=== PATIENT | male | born 1990 | race African-American/Black ===

== ENCOUNTER 2017-06-04 15:56 | Emergency (ER) | payer OTHER ==
[2017-06-04 16:18] VITALS: BP 133/88; PULSE 85; RESP 18
[2017-06-04] MEDS ORDERED: ACETAMINOPHEN TAB 325 MG TAB PO STA (16:19)
--- NOTE | 2017-06-04 16:49 | ED ---
Fever HPI - General Chief Complaint: Fever Stated Complaint: Sore Throat Time Seen by Provider: 06/04/17 16:36 Source: patient, RN notes reviewed Mode of arrival: ambulatory Limitations: no limitations - History of Present Illness Initial Comments: This is a 27-year-old male who presents to the emergency department with chief complaint of sore throat. Patient states that he has had a sore throat and body aches for the past 2 days. He does have a fever on presentation. Denies abdominal pain, nausea or vomiting, shortness of breath or chest pain, constipation or diarrhea. He states that he has received the influenza vaccination this year. Denies any cough. Denies dysuria or hematuria. - Related Data Previous Rx's Medication Instructions Recorded Azithromycin [Zithromax Z-pack] 0 mg PO DIRECTED #6 tab 06/04/17 Ibuprofen 600 mg PO Q6HR #20 tablet 06/04/17 Allergies Allergy/AdvReac Type Severity Reaction Status Date / Time No Known Allergies Allergy Verified 06/04/17 16:50 Review of Systems ROS Statement: Those systems with pertinent positive or pertinent negative responses have been documented in the HPI. ROS Other: All systems not noted in ROS Statement are negative. Past Medical History Past Medical History: Asthma History of Any Multi-Drug Resistant Organisms: None Reported Past Surgical History: No Surgical Hx Reported Past Psychological History: No Psychological Hx Reported Smoking Status: Never smoker Past Alcohol Use History: None Reported Past Drug Use History: None Reported General Exam - General Exam Comments Initial Comments: General: Awake and alert, well-developed; in no apparent distress. HEENT: Head atraumatic, normocephalic. Pupils are equal, round and reactive to light. Extraocular movements intact. Oropharynx moist with mild erythema. No tonsillar enlargement or exudates. Neck: Supple. Normal ROM. Cardiovascular: Regular rate and rhythm. No murmurs, rubs or gallops. Chest symmetrical. Respiratory: Lungs clear to auscultation bilaterally. No wheezes, rales or rhonchi. Normal respiratory effort with no use of accessory muscles. Musculoskeletal: Normal ROM, no tenderness bilateral upper and lower extremities. Ambulating normally. Neurological: Alert and oriented x3. CN II-XII grossly intact. Speech is fluent and answers are appropriate. No focal neuro deficits. Psychiatric: Normal mood and affect. No overt signs of depression or anxiety noted. Limitations: no limitations Course Vital Signs 06/04/17 16:16 Temperature 102.0 F H Pulse Rate 85 Respiratory 18 Rate Blood Pressure 133/88 O2 Sat by Pulse 100 Oximetry Medical Decision Making - Medical Decision Making This is a 27-year-old male who presents to the emergency department with chief complaint of sore throat. Patient given Tylenol in the emergency department for his fever. Influenza and rapid strep were both negative. Patient will be treated with azithromycin because he does have a high fever. Patient requests pain medication for his sore throat. He will be prescribed ibuprofen 600. Patient is in no acute distress on discharged home. Vital signs are stable. He is in agreement with plan and voices understanding. All questions were answered. - Lab Data Lab Results 06/04/17 06/04/17 Range/Units 16:20 16:40 Influenza Type A RNA Not Detected (Not Detectd) Influenza Type B (PCR) Not Detected (Not Detectd) Group A Strep Rapid Negative (Negative) Disposition Clinical Impression: Pharyngitis Disposition: HOME SELF-CARE Condition: Good Instructions: Fever in Adults (ED), Pharyngitis (ED) Additional Instructions: Please take medications as prescribed. Please follow up with primary care provider within 1-2 days. Return to emergency department if symptoms should worsen or any concerns arise. Prescriptions: Azithromycin [Zithromax Z-pack] 0 mg PO DIRECTED #6 tab Ibuprofen 600 mg PO Q6HR #20 tablet Referrals: None,Stated [Primary Care Provider] - 1-2 days Time of Disposition: 17:45
[2017-06-04 17:55] VITALS: TEMP 100.8
== END 2017-06-04 17:54 | disposition home or self-care (01) ==
LOC: EC 15:56
DX: J02.9 Acute pharyngitis, unspecified (principal)
CPT/HCPCS: 87081; 87430; 87502; 99283

== ENCOUNTER 2017-06-07 08:23 | Emergency (ER) | payer OTHER ==
--- NOTE | 2017-06-07 09:10 | ED ---
General Adult HPI - General Chief complaint: ENT Stated complaint: sore throat Time Seen by Provider: 06/07/17 09:04 Source: patient, RN notes reviewed Mode of arrival: ambulatory Limitations: no limitations - History of Present Illness Initial comments: 27-year-old male presents to the emergency department with a chief complaint of a sore throat. Patient states she's had this since Sunday. He was seen a few days ago and started on azithromycin. Patient states that he continues to have the sore throat so he was concerned. Patient does continue to have fevers. He does admit to a cough as well. He states that he just is not feeling much better. He denies any ear pain with this. He denies any bodyaches.Patient denies any recent shortness of breath, chest pain, back pain, abdominal pain, nausea vomiting, numbness or tingling, dysuria or hematuria, constipation or diarrhea, headaches or visual changes, or any other current symptoms. - Related Data Previous Rx's Medication Instructions Recorded Benzonatate [Tessalon Perles] 100 mg PO TID #20 cap 06/07/17 Allergies Allergy/AdvReac Type Severity Reaction Status Date / Time No Known Allergies Allergy Verified 06/07/17 08:47 Review of Systems ROS Statement: Those systems with pertinent positive or pertinent negative responses have been documented in the HPI. ROS Other: All systems not noted in ROS Statement are negative. Past Medical History Past Medical History: Asthma History of Any Multi-Drug Resistant Organisms: None Reported Past Surgical History: No Surgical Hx Reported Past Psychological History: No Psychological Hx Reported Smoking Status: Never smoker Past Alcohol Use History: None Reported Past Drug Use History: None Reported General Exam - General Exam Comments Initial Comments: General exam: Alert, active, comfortable in no apparent distress Head: Normocephalic Eyes: Normal reaction of pupils, equal size, normal range of extraocular motion Ears: normal external ear canals, pink tympanic membranes with normal cone of light Nose: clear with pink turbinates Throat: Erythema with exudate noted. Neck: no masses, no nuchal rigidity Chest: no chest wall deformity Lungs: equal air entry with no crackles or wheeze CVS: S1 and S2 normal with no audible mumurs, regular rhythm Abdomen: no hepatosplenomegaly, normal bowel sounds, no guarding or rigidity Spine: no scoliosis or deformity Skin: no rashes Neurological: No focal deficits, tone is normal in all 4 extremities Limitations: no limitations Course Vital Signs 06/07/17 08:35 Temperature 99.5 F Pulse Rate 91 Respiratory 18 Rate Blood Pressure 135/82 O2 Sat by Pulse 100 Oximetry Medical Decision Making - Medical Decision Making 27-year-old male presents for sore throat. At this time previous strep culture was reviewed and negative. Chest x-ray is negative as well and lab work does appear to be stable. This time we discussed most likely a viral pharyngitis. We discussed continuing the Motrin and Tylenol. We discussed continuing the current treatment plan. We discussed follow-up we discussed return parameters all questions. The patient stated that he understood and he is agreement this plan. He will be discharged. - Lab Data Result diagrams: 06/07/17 09:25 06/07/17 09:25 Lab Results 06/07/17 06/07/17 06/07/17 Range/Units 09:25 09:25 09:25 WBC 8.3 (3.8-10.6) k/uL RBC 4.31 (4.30-5.90) m/uL Hgb 13.8 (13.0-17.5) gm/dL Hct 40.9 (39.0-53.0) % MCV 95.0 (80.0-100.0) fL MCH 32.0 (25.0-35.0) pg MCHC 33.7 (31.0-37.0) g/dL RDW 11.4 L (11.5-15.5) % Plt Count 183 (150-450) k/uL Neutrophils % 75 % Lymphocytes % 11 % Monocytes % 8 % Eosinophils % 3 % Basophils % 0 % Neutrophils # 6.2 (1.3-7.7) k/uL Lymphocytes # 0.9 L (1.0-4.8) k/uL Monocytes # 0.7 (0-1.0) k/uL Eosinophils # 0.2 (0-0.7) k/uL Basophils # 0.0 (0-0.2) k/uL Sodium 144 (137-145) mmol/L Potassium 4.0 (3.5-5.1) mmol/L Chloride 103 (98-107) mmol/L Carbon Dioxide 28 (22-30) mmol/L Anion Gap 13 mmol/L BUN 9 (9-20) mg/dL Creatinine 0.80 (0.66-1.25) mg/dL Est GFR (MDRD) Af Amer >60 (>60 ml/min/1.73 sqM) Est GFR (MDRD) Non-Af >60 (>60 ml/min/1.73 sqM) Glucose 113 H (74-99) mg/dL Calcium 9.1 (8.4-10.2) mg/dL Total Bilirubin 0.8 (0.2-1.3) mg/dL AST 20 (17-59) U/L ALT 19 L (21-72) U/L Alkaline Phosphatase 71 (38-126) U/L Total Protein 7.5 (6.3-8.2) g/dL Albumin 4.1 (3.5-5.0) g/dL Heterophile Antibody Negative (Negative) - Radiology Data Radiology results: report reviewed, image reviewed Disposition Clinical Impression: Pharyngitis Disposition: HOME SELF-CARE Condition: Stable Instructions: Pharyngitis (ED) Additional Instructions: Please use medication as discussed. Please follow up with family doctor if symptoms have not improved over the next two days. Please return to the emergency room if your symptoms increase or worsen or for any other concerns. Prescriptions: Benzonatate [Tessalon Perles] 100 mg PO TID #20 cap Referrals: Stacey Parks MD [REFERRING] - 1-2 days Time of Disposition: 10:14
--- NOTE | 2017-06-07 09:26 | XR ---
EXAMINATION TYPE: XR chest 2V DATE OF EXAM: 06/07/2017 COMPARISON: NONE INDICATION: Cough, sore throat, fever x4 days TECHNIQUE: Frontal and lateral views of the chest are obtained. FINDINGS: The heart size is normal. The pulmonary vasculature is normal. The lungs are clear. IMPRESSION: 1. No acute pulmonary process.
[2017-06-07 09:38] LABS: Basophils % (A) 0 %; Eosinophils # (A) 0.2 k/uL (0-0.7); Eosinophils % (A) 3 %; HCT 40.9 % (39.0-53.0); HGB 13.8 gm/dL (13.0-17.5); Lymphocytes # (A) 0.9 k/uL (1.0-4.8); Lymphocytes % (A) 11 %; MCHC 33.7 g/dL (31.0-37.0); Mean Platelet Volume 6.6; Monocytes # (A) 0.7 k/uL (0-1.0); Monocytes % (A) 8 %; Neutrophils # (A) 6.2 k/uL (1.3-7.7); Neutrophils % (A) 75 %; Platelet Count 183 k/uL (150-450); RBC 4.31 m/uL (4.30-5.90); RDW 11.4 % (11.5-15.5); WBC 8.3 k/uL (3.8-10.6)
[2017-06-07 09:47] LABS: ALT 19 U/L (21-72); AST 20 U/L (17-59); Albumin 4.1 g/dL (3.5-5.0); Alkaline Phosphatase 71 U/L (38-126); Anion Gap 13 mmol/L; Blood Urea Nitrogen 9 mg/dL (9-20); Calcium 9.1 mg/dL (8.4-10.2); Carbon Dioxide 28 mmol/L (22-30); Chloride 103 mmol/L (98-107); Glucose 113 mg/dL (74-99); Sodium 144 mmol/L (137-145); Total Bilirubin 0.8 mg/dL (0.2-1.3); Total Protein 7.5 g/dL (6.3-8.2)
[2017-06-07 10:26] VITALS: BP 129/76; PULSE 88; RESP 14; TEMP 99
== END 2017-06-07 10:26 | disposition home or self-care (01) ==
LOC: EC 08:23
DX: J02.9 Acute pharyngitis, unspecified (principal)
CPT/HCPCS: 36415; 71046; 80053; 85025; 86308; 99283

== ENCOUNTER 2017-12-20 02:59 | Emergency (ER) | payer OTHER ==
[2017-12-20] MEDS ORDERED: IPRATROPIUM-ALBUTEROL 3 ML NEB INHALATION STA (03:40)
--- NOTE | 2017-12-20 04:02 | ED ---
SOB HPI - General Chief Complaint: Shortness of Breath Stated Complaint: Difficulty Breathing, cough Time Seen by Provider: 12/20/17 03:56 Source: patient Mode of arrival: wheelchair Limitations: no limitations - History of Present Illness Initial Comments: Patient is 27-year-old man with history of asthma who presents with what he feels an exacerbation. States the symptoms came on starting tonight. He had been in the house and was watching television. He has had some bilateral rib pains after the coughing. MD Complaint: shortness of breath, cough, chest pain, "asthma attack" Onset/Timin -: hour(s) Quality: aching Consistency: constant Improves With: nothing Worsens With: coughing Known History Of: asthma Context: recent URI Associated Symptoms: chest pain, cough Treatments Prior to Arrival: none - Related Data Previous Rx's Medication Instructions Recorded Benzonatate [Tessalon Perles] 100 mg PO TID #20 cap 06/07/17 Albuterol Inhaler [Ventolin Hfa 1 - 2 puff INHALATION Q6HR PRN #1 12/20/17 Inhaler] inhaler predniSONE 20 mg PO BID #8 tab 12/20/17 Allergies Allergy/AdvReac Type Severity Reaction Status Date / Time No Known Allergies Allergy Verified 12/20/17 03:15 Review of Systems ROS Statement: Those systems with pertinent positive or pertinent negative responses have been documented in the HPI. ROS Other: All systems not noted in ROS Statement are negative. Constitutional: Denies: fever, chills Respiratory: Reports: cough, dyspnea, wheezes Cardiovascular: Reports: chest pain Gastrointestinal: Denies: abdominal pain, vomiting, diarrhea Musculoskeletal: Denies: back pain Skin: Denies: rash Past Medical History Past Medical History: Asthma History of Any Multi-Drug Resistant Organisms: None Reported Past Surgical History: No Surgical Hx Reported Past Psychological History: No Psychological Hx Reported Smoking Status: Never smoker Past Alcohol Use History: None Reported Past Drug Use History: None Reported General Exam Limitations: no limitations General appearance: alert, in no apparent distress Head exam: Present: atraumatic, normocephalic Eye exam: Present: normal appearance. Absent: scleral icterus, conjunctival injection Respiratory exam: Present: wheezes, chest wall tenderness. Absent: respiratory distress, rales, rhonchi, stridor, accessory muscle use, decreased breath sounds , prolonged expiratory Cardiovascular Exam: Present: regular rate (Rate is 92 my exam), normal rhythm, normal heart sounds. Absent: systolic murmur, diastolic murmur, rubs, gallop GI/Abdominal exam: Present: soft. Absent: distended, tenderness, guarding, rebound, mass Extremities exam: Present: normal inspection, normal capillary refill. Absent: pedal edema, calf tenderness Back exam: Present: normal inspection Neurological exam: Present: alert Skin exam: Present: warm, dry, intact, normal color. Absent: rash Course Vital Signs 12/20/17 12/20/17 12/20/17 03:12 03:23 03:59 Temperature 98.4 F Pulse Rate 106 H 87 Respiratory 22 17 Rate Blood Pressure 121/72 O2 Sat by Pulse 95 Oximetry 12/20/17 12/20/17 04:10 04:50 Temperature Pulse Rate 90 96 Respiratory 17 Rate Blood Pressure 145/67 O2 Sat by Pulse 97 Oximetry Medical Decision Making - EKG Data EKG shows normal: sinus rhythm, axis (Normal), intervals (Normal), QRS complexes (Normal), ST-T waves (Normal) Rate: normal (Rate 91 bpm) Disposition Clinical Impression: Asthma exacerbation Disposition: HOME SELF-CARE Condition: Good Instructions: Asthma (ED) Prescriptions: Albuterol Inhaler [Ventolin Hfa Inhaler] 1 - 2 puff INHALATION Q6HR PRN #1 inhaler PRN Reason: Wheezing predniSONE 20 mg PO BID #8 tab Is patient prescribed a controlled substance at d/c from ED?: No Referrals: None,Stated [Primary Care Provider] - 1-2 days Sathish Torres MD [REFERRING] - 1-2 days
--- NOTE | 2017-12-20 04:52 | XR ---
EXAM: XR Chest, 2 Views CLINICAL HISTORY: ITS.REASON XR Reason: Short of breath TECHNIQUE: Frontal and lateral views of the chest. COMPARISON: Chest x-ray dated 06/07/2017. FINDINGS: Lungs: Unremarkable. The lungs are clear. Pleural space: Unremarkable. No pneumothorax. Heart: Unremarkable. No cardiomegaly. Mediastinum: Unremarkable. Bones/joints: Unremarkable. IMPRESSION: Normal chest x-rays.
[2017-12-20 05:28] VITALS: BP 134/73; PULSE 100; RESP 18; TEMP 100.8
[2017-12-20] MEDS ORDERED: ACETAMINOPHEN TAB 325 MG TAB PO STA (05:35)
== END 2017-12-20 05:39 | disposition home or self-care (01) ==
LOC: EC 02:59
DX: J45.901 Unspecified asthma with (acute) exacerbation (principal)
CPT/HCPCS: 71046; 93005; 94640; 99285